=== PATIENT | male | born 1935 | race Caucasian/White ===

== ENCOUNTER 2017-06-22 14:01 | Observation (INO) | payer MEDICARE, OTHER ==
[~2017-06-22] VITALS: Ht 172.7 cm; Wt 90.9 kg
[2017-06-22] MEDS ORDERED: LOSARTAN POTASS50 MG PO (18:46)
[2017-06-22] MEDS ORDERED: XARELTO20 MG PO (18:46)
[2017-06-22] MEDS ORDERED: ASPIRIN EC81 MG PO (18:46)
[2017-06-22] MEDS ORDERED: METOPROLOL TART25 MG PO (18:47)
[2017-06-22] MEDS ORDERED: ISOSORBIDE MONO60 MG PO (18:47)
[2017-06-22] MEDS ORDERED: RANITIDINE HCL150 MG PO (18:48)
[2017-06-22] MEDS ORDERED: TAMSULOSIN HCL0.4 MG PO (18:48)
[2017-06-22] MEDS ORDERED: FINASTERIDE5 MG PO (18:48)
[2017-06-22] MEDS ORDERED: ATORVASTATIN CA40 MG PO (18:48)
[2017-06-22] MEDS ORDERED: GLIPIZIDE-METF1 EAC1 PO (18:49)
[2017-06-22] MEDS ORDERED: COQ-1030 MG PO (18:50)
[2017-06-22] MEDS ORDERED: GABAPENTIN300 MG PO (18:50)
[2017-06-22] MEDS ORDERED: MELATONIN5 M2 PO (18:50)
[2017-06-22] MEDS ORDERED: PROBIOTIC1 EAC3 PO (18:51)
[2017-06-22] MEDS ORDERED: ONE DAILY MULT1 EAC1 PO (18:51)
--- NOTE | 2017-06-22 19:50 | NUR ---
PT ADMITED TO ROOM 109 FROM ED. PT ALERT AND ORIENTD, R SIDED ARM AND LEG DEFICIT PRESENT, DENIES C/O CHEST PAIN, TELE INPLACE. PT ATE 100% LUNCH BOX, USED URINAL, VOIDED CLEAR YELLOW URINE. PT BACK ON BED WITH ASSIST, BED ALARM ON, WILL PROVIDE A FWW. COOP WITH ADMIT QUESTIONS, NO C/O PAIN. IN ROOM
--- NOTE | 2017-06-22 20:00 | NUR ---
RECEIVED REPORT AT 190. PT JUST ARRIVED ON THE FLOOR WITH AT 185. . BRONZER DID ADMISSION SCREENS. PT AT THIS TIME DENIES PAIN.
--- NOTE | 2017-06-22 22:00 | NUR ---
ALL LOBES ARE CLEAR, LOWER LOBES ARE DIMINISHED, ABD SOUNDS ARE PRESENT, NO PERIPHERAL EDEMA NOTED, PT HAS SEVERE RIGHT SIDED WEAKNESS AND FACIAL DROP WITH TOUNG DIVIATION TO THE RIGHT. 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 V/S ARE WDL. PT IS ON TELE #9, HR IS 73 AT THIS TIME. NO NEW CONCERNS SO FAR.
--- NOTE | 2017-06-23 00:15 | NUR ---
PT IS SLEEPING AT THIS TIME.
--- NOTE | 2017-06-23 01:32 | NUR ---
VITALS AND I&OS DONE AND CHARTED. PT NEEDS NOTHING ELSE AT THIS TIME. BEDSIDE TABLE AND CALL LIGHT WITHIN REACH.
--- NOTE | 2017-06-23 02:00 | NUR ---
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 V/S ARE WDL, ALL LOBES ARE CLEAR. HR IS WDL AT THIS TIME. NO EDEMA NOTED. NO CHANGE IN NEUROLOGICAL STATUS FOR THIS PT EITHER. NO NEW CONCERNS AT THIS TIME. PT IS TRYING TO SLEEP AGAIN.
--- NOTE | 2017-06-23 03:07 | NUR ---
HELPED PT CHANGE HIS GOWN. HE GOT URINE ON IT FROM USING HIS URINAL. BEDSIDE TABLE AND CALL LIGHT WITHIN REACH. IN ROOM WITH HIM.
--- NOTE | 2017-06-23 04:00 | NUR ---
PT IS SLEEPING.
--- NOTE | 2017-06-23 05:15 | NUR ---
PT HAD UNEVENTFUL NIGHT OVERALL. V/S ARE WDL SO FAR, ALL LOBES ARE CLEAR, HR HAS BEEN 55-90 AFTER MEDS WERE GIVEN LAST NIGHT. RIGHT SIDED WEAKNESS AND EXPRESSIVE ASPHAGIA ARE PRESENT FROM PREVIOUS CVA,BG WAS 213, PT RECEIVED 3 UNITS OF NOVOLOG INSULIN. URINE OUTPUT SO FAR HAS BEEN ADEQUATE. PT IS ON TELE #9. NO NEW CONCERNS FOR THIS PT SO FAR THIS SHIFT.
--- NOTE | 2017-06-23 05:31 | NUR ---
VITALS AND I&OS DONE AND CHARTED. BEDSIDE TABLE AND CALL LIGHT WITHIN REACH. PT NEEDS NOTHING ELSE AT THIS TIME.
--- NOTE | 2017-06-23 07:51 | NUR ---
PATIENT AWAKE, LUNG SOUNDS CLEAR. NOTED EXPRESSIVE EPHASIA, PATIENT BASELINE. 200 ML OF CLEAR YELLOW URINE. CBG 161. AT BEDSIDE, ORDERED PATIENT CAREGIVER JUANIS, PATIENT'S WAS UP WITH PATIENT THROUGHOUT NIGHT PROVIDING ASSISTANCE TO PATIENT.
[2017-06-23] MEDS ORDERED: CLARITIN10 MG PO (09:01)
--- NOTE | 2017-06-23 09:07 | NUR ---
MED REC COMPLETE
--- NOTE | 2017-06-23 09:30 | NUR ---
PATIENT UP TO BATHROOM, SHOWERED. PATIENT ASSISTED WITH ACTIVITY AND TOLERATED WELL. NO SKIN ISSUES NOTED. PATIENT SET UP TO BRUSH TEETH AND SHAVE. ASSISTING WITH THOSE CARES AT BEDSIDE.
--- NOTE | 2017-06-23 10:51 | NUR ---
DR. HERNANDEZ ROUNDED WITH PATIENT, PLAN TO DC HOME TODAY. PATIENT VERBALIZED UNDERSTANDING. PLAN TO TAKE HOME HOSPITAL CUP WITH MEASUREMENTS TO BE SURE TO BE DRINKING PLENTY OF FLUID AND TO FOLLOW UP WITH PCP.
--- NOTE | 2017-06-23 12:01 | NUR ---
PROVIDED PATIENT AND MONA WITH DISCHARGE INSTRUCTIONS. DISCUSSED IMPORTANCE OF DRINKING FLUID AND KEEPING TRACK OF AMOUNT PATIENT IS DRINKING, NO QUESTIONS OR CONCERNS. PATIENT IS HAS FOLLOW UP APPOINTMENTS ALREADY SCHEDULED WITH PCP AND CARDIOLAGIST. DISCUSSED SYMPTOMS AND WHAT TO WATCH FOR PATIENT'S VERBALIZED UNDERSTANDING AND ABLE TO REPEAT. DISCUSSED INCREASE IN FALL RISK IF PATIENT CONTINUES TO HAVE [employer] EPISODES AND SAFETY AT HOME. WHEELCHAIR RIDE TO [facility] PRIVATE CARE PROVIDED AT FRONT OF HOSPITAL.
--- NOTE | 2017-06-24 17:47 | EKG ---
[facility] [address] [place] [address] Signed Sinus rhythm with 1st degree AV block Left bundle branch block Abnormal ECG No previous ECGs available Confirmed by MICHELLE HERNANDEZ MD ([id number]) on 06/24/2017 5:47:37 PM Electronically Signed By: MICHELLE HERNANDEZ MD 06/24/17 1747 PATIENT NAME: COURTNEY MATIAS Electrocardiogram DATE OF : 39 PHYSICIAN: MICHELLE HERNANDEZ MD REPORT #: [id number] REPORT IS CONFIDENTIAL AND NOT TO BE RELEASED WITHOUT AUTHORIZATION
== END 2017-06-23 11:50 | disposition home or self-care (01) ==
LOC: ED 14:01 → EDBD 14:02 → ED 14:02 → MS 14:03 → ED 14:03 → MS 14:03
PROVIDERS: ADMIT Internal Medicine
DX: R55 Syncope and collapse (principal); I10 Essential (primary) hypertension; I25.10 Atherosclerotic heart disease of native coronary artery without angina pectoris; N40.0 Benign prostatic hyperplasia without lower urinary tract symptoms; E11.9 Type 2 diabetes mellitus without complications; E78.5 Hyperlipidemia, unspecified; K21.9 Gastro-esophageal reflux disease without esophagitis; G45.1 Carotid artery syndrome (hemispheric); F51.04 Psychophysiologic insomnia; I69.820 Aphasia following other cerebrovascular disease; I69.851 Hemiplegia and hemiparesis following other cerebrovascular disease affecting right dominant side; Z79.01 Long term (current) use of anticoagulants; Z95.1 Presence of aortocoronary bypass graft; Z95.5 Presence of coronary angioplasty implant and graft; Z86.718 Personal history of other venous thrombosis and embolism; Z79.84 Long term (current) use of oral hypoglycemic drugs; Z79.82 Long term (current) use of aspirin; Z79.899 Other long term (current) drug therapy; Z88.2 Allergy status to sulfonamides; Z91.09 Other allergy status, other than to drugs and biological substances
CPT/HCPCS: 70450; 71045; 80053; 81001; 83605; 84484; 85025; 85610; 93005; 93010; 99285; G0378; J7030; J7120